=== PATIENT | male | born 1995 | race Caucasian/White ===

== ENCOUNTER 2021-11-27 10:42 | Emergency (ER) | payer BC ==
[2021-11-27 10:57] VITALS: BP 105/64; PULSE 79; TEMP 98.3; BMI 29.0
== END 2021-11-27 12:00 | disposition home or self-care (01) ==
LOC: JERFT 10:42
DX: S40.862A Insect bite (nonvenomous) of left upper arm, initial encounter (principal); S50.862A Insect bite (nonvenomous) of left forearm, initial encounter; W57.XXXA Bitten or stung by nonvenomous insect and other nonvenomous arthropods, initial encounter
CPT/HCPCS: 99281-25

== ENCOUNTER 2023-07-02 20:42 | Emergency (ER) | payer SELFPAY ==
[2023-07-02 20:50] VITALS: BP 126/83; PULSE 87; RESP 18; TEMP 98.1; BMI 30.5
[2023-07-02] MEDS ORDERED: DIPHTH,PERTUSS(ACELL),TET 0.5 ML DISP.SYRIN IM ONE ×3 (21:47→23:38)
== END 2023-07-02 23:38 | disposition home or self-care (01) ==
LOC: JER 20:42
PROC: 0HQFXZZ Repair Right Hand Skin, External Approach (ICD-10-PCS; principal; 2023-07-02)
PROC: 3E0234Z Introduction of Serum, Toxoid and Vaccine into Muscle, Percutaneous Approach (ICD-10-PCS; 2023-07-02)
DX: S61.212A Laceration without foreign body of right middle finger without damage to nail, initial encounter (principal); W25.XXXA Contact with sharp glass, initial encounter
CPT/HCPCS: 73130-TC-RT-FY; 90715; 99283-25

== ENCOUNTER 2023-12-29 08:40 | Emergency (ER) | payer SELFPAY ==
[2023-12-29 08:55] VITALS: RESP 18; BMI 29.8
[2023-12-29] MEDS: SODIUM CHLORIDE 0.9% 1000 ML INFUS.BAG IV ONE (09:56)
[2023-12-29 10:02] LABS: BASO % 0.5 % (0-2.0); EOS % 0.9 % (0-4.5); HEMATOCRIT 34.5 % (35.4-49); HEMOGLOBIN 11.8 GM/dL (11.7-16.9); LYMPH % 17.8 % (8-40); MCHC 34.1 g/dl (32.0-35.9); MEAN CELL VOLUME 108.6 fl (80-96); MEAN PLT VOLUME 8.5 fl (7.5-11.1); MONO % 1.1 % (3.8-10.2); NEUT % 79.7 % (42.8-82.8); PLATELET COUNT 195 10^3/uL (134-434); RBC 3.18 M/mm3 (4.00-5.60); WHITE BLOOD COUNT 7.4 K/mm3 (4.0-10.0)
[2023-12-29 10:25] LABS: ANISOCYTOSIS 1+; MACROCYTOSIS 1+; POTASSIUM 3.7 mmol/L (3.5-5.1)
[2023-12-29 10:29] LABS: ALBUMIN 2.9 g/dl (3.4-5.0); BLOOD UREA NITROGEN 14.9 mg/dL (7-18)
[2023-12-29 10:32] LABS: CREATININE 0.6 mg/dL (0.55-1.3)
[2023-12-29 10:33] LABS: BILIRUBIN,TOTAL 1.3 mg/dL (0.2-1)
[2023-12-29 10:34] LABS: TOT PROT 6.3 g/dl (6.4-8.2)
[2023-12-29 12:59] VITALS: BP 124/77; PULSE 79; TEMP 98.7
[2023-12-29 17:23] LABS: MAGNESIUM 2.1 mg/dL (1.8-2.4)
[2023-12-29] MEDS ORDERED: ONDANSETRON 4 MG/2 ML VIAL IVPUSH PRN (19:04)
[2023-12-29] MEDS ORDERED: SODIUM CHLORIDE 1,000 ML IV SCH (19:15)
[2023-12-29] MEDS ORDERED: THIAMINE 100 MG TABLET PO SCH (20:00)
[2023-12-29] MEDS ORDERED: FOLIC ACID 1 MG TABLET (FP) PO SCH (20:00)
[2023-12-29] MEDS ORDERED: NICOTINE 21 MG/24 HOURS TOPICAL PATCH TD SCH (20:00)
[2023-12-30] MEDS ORDERED: ENOXAPARIN NA (PORCINE) 40 MG/0.4 ML DISP.SYRIN SQ SCH (10:00)
== END 2023-12-29 13:02 | disposition home or self-care (01) ==
LOC: JER 08:40 → MERGE 08:40 → JER 13:02
DX: R55 Syncope and collapse (principal); R42 Dizziness and giddiness; R11.0 Nausea; R53.81 Other malaise
CPT/HCPCS: 36415; 71045-TC-FY; 80053; 80307; 83036; 83735; 84484; 85025; 93005; 93010; 99285-25

== ENCOUNTER 2023-12-29 14:01 | Inpatient (IN) | payer SELFPAY ==
[2023-12-29] MEDS: LACTATED RINGERS SOLUTION 1000 ML INFUS.BAG IV ONE (14:39)
[2023-12-29 14:49] LABS: BASO % 0.4 % (0-2.0); EOS % 0.7 % (0-4.5); HEMATOCRIT 33.2 % (35.4-49); HEMOGLOBIN 11.2 GM/dL (11.7-16.9); LYMPH % 24.9 % (8-40); MCH 36.5 pg (25.7-33.7); MCHC 33.7 g/dl (32.0-35.9); MEAN CELL VOLUME 108.2 fl (80-96); MEAN PLT VOLUME 8.3 fl (7.5-11.1); MONO % 1.4 % (3.8-10.2); NEUT % 72.6 % (42.8-82.8); PLATELET COUNT 188 10^3/uL (134-434); RBC 3.07 M/mm3 (4.00-5.60); RDW 18.3 % (11.9-15.9); WHITE BLOOD COUNT 7.1 K/mm3 (4.0-10.0)
[2023-12-29 15:11] LABS: ANISOCYTOSIS 1+; MACROCYTOSIS 1+; OVALOCYTE 1+
[2023-12-29 15:16] LABS: POTASSIUM 3.2 mmol/L (3.5-5.1)
[2023-12-29 15:18] LABS: ALBUMIN 2.9 g/dl (3.4-5.0); CALCIUM 8.1 mg/dL (8.5-10.1)
[2023-12-29 15:21] LABS: CREATININE 0.6 mg/dL (0.55-1.3)
[2023-12-29 15:23] LABS: BILIRUBIN,TOTAL 0.7 mg/dL (0.2-1); TOT PROT 6.2 g/dl (6.4-8.2)
[2023-12-29 15:29] LABS: ERYTHROCYTE SEDIMENTATION RATE 5 mm/hr (0-10)
[2023-12-29] MEDS ORDERED: POTASSIUM CHLORIDE ORAL LIQUID 20 MEQ/15 ML ONE (16:43)
[2023-12-29] MEDS: POTASSIUM CHLORIDE ORAL LIQUID 20 MEQ/15 ML PO ONE (16:44)
[2023-12-29 17:24] LABS: OPIATES, URI NEGATIVE (NEGATIVE); URINE BARBITURATES NEGATIVE (NEGATIVE)
[2023-12-29 17:25] LABS: METHADONE, UR NEGATIVE (NEGATIVE); URINE AMPHETAMINES NEGATIVE (NEGATIVE); URINE BENZODIAZEPINES NEGATIVE (NEGATIVE)
[2023-12-29 17:30] LABS: COCAINE, UR POSITIVE (NEGATIVE); PHENCYCLIDINE,URINE NEGATIVE (NEGATIVE)
[2023-12-29] MEDS ORDERED: NICOTINE 14 MG/24 HOURS TOPICAL PATCH TD ONE (21:53)
[2023-12-29] MEDS: NICOTINE 14 MG/24 HOURS TOPICAL PATCH TD ONE (21:56)
[2023-12-30] MEDS: hydrOXYzine PAMOATE 25 MG CAPSULE (FP) PO PRN (00:10)
[2023-12-30] MEDS: MELATONIN 5 MG TABLETS PO ONE (00:10)
[2023-12-30] MEDS: LACTATED RINGERS SOLUTION 1,000 ML/1,000 ML INFUS.BAG IV SCH ×2 (08:38→12:32)
[2023-12-30 09:01] VITALS: BMI 31.8
[2023-12-30] MEDS ORDERED: ONDANSETRON 4 MG/2 ML VIAL IVPUSH PRN (09:45)
[2023-12-30] MEDS: FOLIC ACID 1 MG TABLET (FP) PO SCH (09:53)
[2023-12-30] MEDS: THIAMINE 100 MG TABLET PO SCH (09:54)
[2023-12-30] MEDS: NICOTINE 14 MG/24 HOURS TOPICAL PATCH TD SCH (09:54)
[2023-12-30] MEDS: PANTOPRAZOLE 20 MG TABLET PO SCH (09:54)
[2023-12-30 11:13] LABS: BASO % 0.7 % (0-2.0); EOS % 1.9 % (0-4.5); HEMATOCRIT 26.9 % (35.4-49); HEMOGLOBIN 9.2 GM/dL (11.7-16.9); LYMPH % 40.6 % (8-40); MCH 36.8 pg (25.7-33.7); MCHC 34.2 g/dl (32.0-35.9); MEAN CELL VOLUME 107.7 fl (80-96); MEAN PLT VOLUME 8.5 fl (7.5-11.1); MONO % 1.9 % (3.8-10.2); NEUT % 54.9 % (42.8-82.8); PLATELET COUNT 150 10^3/uL (134-434); RDW 18.6 % (11.9-15.9); WHITE BLOOD COUNT 4.1 K/mm3 (4.0-10.0)
[2023-12-30 11:29] LABS: CHLORIDE 110 mmol/L (98-107); SODIUM 141 mmol/L (136-145)
[2023-12-30 11:31] LABS: CALCIUM 7.6 mg/dL (8.5-10.1)
[2023-12-30 11:32] LABS: ALBUMIN 2.4 g/dl (3.4-5.0); BLOOD UREA NITROGEN 9.5 mg/dL (7-18); CO2 27 mmol/L (21-32); GLUCOSE,RANDOM 121 mg/dL (74-106)
[2023-12-30 11:35] LABS: CREATININE 0.6 mg/dL (0.55-1.3); SGOT/AST 26 U/L (15-37); SGPT/ALT 36 U/L (13-61)
[2023-12-30 11:37] LABS: BILIRUBIN,TOTAL 0.5 mg/dL (0.2-1); TOT PROT 4.9 g/dl (6.4-8.2)
[2023-12-30 11:38] LABS: ALK PHOS 70 U/L (45-117)
[2023-12-30 11:52] LABS: ANION GAP 5 mmol/L (4-13); POTASSIUM 2.9 mmol/L (3.5-5.1)
[2023-12-30] MEDS: POTASSIUM CHLORIDE ORAL LIQUID 20 MEQ/15 ML PO ONE (13:10)
[2023-12-30] MEDS: KCL 10 MEQ IVPB 10 MEQ/100 ML INFUS.BAG IVPB SCH (13:10)
[2023-12-30] MEDS: LORazepam 1 MG TABLET PO PRN (13:11)
[2023-12-30 14:29] LABS: MAGNESIUM 1.9 mg/dL (1.8-2.4)
[2023-12-30 19:35] LABS: CALCIUM 7.8 mg/dL (8.5-10.1); POTASSIUM 3.8 mmol/L (3.5-5.1)
[2023-12-30 19:36] LABS: BLOOD UREA NITROGEN 6.3 mg/dL (7-18)
[2023-12-30 19:38] LABS: CREATININE 0.6 mg/dL (0.55-1.3)
[2023-12-30] MEDS: MELATONIN 5 MG TABLETS PO PRN (22:38)
[2023-12-31] MEDS: ACETAMINOPHEN 1000 MG/100 ML BAG IVPB ONE (04:27)
[2023-12-31 08:15] LABS: BASO % 0.8 % (0-2.0); EOS % 2.1 % (0-4.5); HEMATOCRIT 27.5 % (35.4-49); HEMOGLOBIN 9.3 GM/dL (11.7-16.9); MCHC 33.8 g/dl (32.0-35.9); MEAN CELL VOLUME 109.4 fl (80-96); MEAN PLT VOLUME 8.9 fl (7.5-11.1); MONO % 3.6 % (3.8-10.2); NEUT % 48.5 % (42.8-82.8); PLATELET COUNT 168 10^3/uL (134-434); RBC 2.51 M/mm3 (4.00-5.60); RDW 17.8 % (11.9-15.9); WHITE BLOOD COUNT 3.6 K/mm3 (4.0-10.0)
[2023-12-31 08:42] LABS: POTASSIUM 4.1 mmol/L (3.5-5.1)
[2023-12-31 08:50] LABS: CALCIUM 7.2 mg/dL (8.5-10.1); MAGNESIUM 1.8 mg/dL (1.8-2.4)
[2023-12-31 08:51] LABS: CREATININE 0.5 mg/dL (0.55-1.3)
[2023-12-31] MEDS ORDERED: guaiFENesin 600 MG TABLET.ER (FP) PO PRN (09:46)
[2023-12-31] MEDS ORDERED: BENZOCAINE/MENTHOL (CHLORASEPTIC ) LOZENGE MM PRN (09:46)
[2023-12-31] MEDS ORDERED: IBUPROFEN 400 MG TABLET (FP) PO PRN (09:46)
[2023-12-31] MEDS ORDERED: MAG HYDROX/AL HYDROX/SIMETH 30 ML UNIT-DOSE CUP PO PRN (09:46)
[2023-12-31] MEDS ORDERED: METHOCARBAMOL 500 MG TABLET PO PRN (09:46)
[2023-12-31] MEDS ORDERED: NALOXONE HCL 0.4 MG/ML VIAL IM PRN (09:46)
[2023-12-31] MEDS ORDERED: BISMUTH SUBSALICYLATE 524 MG/30 ML PO PRN (09:46)
[2023-12-31] MEDS ORDERED: MAGNESIUM HYDROX 2400MG/30ML ORAL SUSPENSION 30 ML CUP PO PRN (09:46)
[2023-12-31] MEDS ORDERED: DICYCLOMINE HCL 10 MG CAPSULE PO PRN (09:46)
[2023-12-31] MEDS ORDERED: POLYETHYLENE GLYCOL (HEALTHYLAX) 3350 17 GM PACKET PO PRN (09:46)
[2023-12-31] MEDS ORDERED: BENZONATATE 200 MG CAPSULE PO PRN (09:46)
[2023-12-31] MEDS: LORazepam 1 MG TABLET PO SCH (10:58)
[2023-12-31] MEDS ORDERED: LORazepam 2 MG TABLET PO SCH (11:00)
[2023-12-31] MEDS: PRENATAL VITAMINS W/ FOLIC ACID TABLET (FP) PO SCH (12:56)
[2023-12-31] MEDS: MAGNESIUM OXIDE 400 MG TABLET (FP) PO ONE (12:57)
[2023-12-31] MEDS: ACETAMINOPHEN 325 MG TABLET (FP) PO PRN (15:30)
[2023-12-31] MEDS: hydrOXYzine PAMOATE 25 MG CAPSULE (FP) PO PRN (23:53)
[2024-01-01 10:17] LABS: BASO % 0.5 % (0-2.0); EOS % 1.5 % (0-4.5); HEMOGLOBIN 9.9 GM/dL (11.7-16.9); MCH 38.3 pg (25.7-33.7); MCHC 35.4 g/dl (32.0-35.9); MEAN CELL VOLUME 108.1 fl (80-96); MEAN PLT VOLUME 8.2 fl (7.5-11.1); PLATELET COUNT 207 10^3/uL (134-434); RBC 2.59 M/mm3 (4.00-5.60); RDW 17.8 % (11.9-15.9); WHITE BLOOD COUNT 4.7 K/mm3 (4.0-10.0)
[2024-01-01 10:36] LABS: POTASSIUM 3.6 mmol/L (3.5-5.1)
[2024-01-01 10:38] LABS: CALCIUM 7.8 mg/dL (8.5-10.1)
[2024-01-01 10:39] LABS: MAGNESIUM 1.8 mg/dL (1.8-2.4)
[2024-01-01 10:42] LABS: CREATININE 0.7 mg/dL (0.55-1.3)
[2024-01-01 10:43] LABS: BILIRUBIN,TOTAL 0.4 mg/dL (0.2-1); TOT PROT 5.9 g/dl (6.4-8.2)
[2024-01-01 10:47] LABS: ALBUMIN 2.9 g/dl (3.4-5.0)
[2024-01-01] MEDS: LOPERAMIDE HCL 2 MG CAPSULE PO PRN (13:13)
[2024-01-01] MEDS: IBUPROFEN 600 MG TABLET (FP) PO PRN (13:13)
[2024-01-01] MEDS: MELATONIN 5 MG TABLETS PO SCH (21:42)
[2024-01-02] MEDS: LORazepam 1 MG TABLET PO SCH (06:21)
[2024-01-02 08:25] LABS: HEMATOCRIT 28.1 % (35.4-49); HEMOGLOBIN 9.8 GM/dL (11.7-16.9); MCH 37.2 pg (25.7-33.7); MCHC 34.9 g/dl (32.0-35.9); MEAN CELL VOLUME 106.8 fl (80-96); MEAN PLT VOLUME 8.5 fl (7.5-11.1); PLATELET COUNT 240 10^3/uL (134-434); RBC 2.63 M/mm3 (4.00-5.60); RDW 17.6 % (11.9-15.9); WHITE BLOOD COUNT 4.4 K/mm3 (4.0-10.0)
[2024-01-02 08:27] LABS: POTASSIUM 3.6 mmol/L (3.5-5.1)
[2024-01-02 08:41] LABS: BLOOD UREA NITROGEN 4.8 mg/dL (7-18); CALCIUM 8.1 mg/dL (8.5-10.1)
[2024-01-02 08:42] LABS: MAGNESIUM 2.1 mg/dL (1.8-2.4)
[2024-01-02 08:44] LABS: BILIRUBIN,TOTAL 0.4 mg/dL (0.2-1); PHOSPHOROUS 3.9 mg/dL (2.5-4.9); TOT PROT 6.2 g/dl (6.4-8.2)
[2024-01-02 08:45] LABS: CREATININE 0.7 mg/dL (0.55-1.3)
[2024-01-02] MEDS: CYANOCOBALAMIN (VITAMIN B-12) 1000 MCG/1 ML VIAL IM SCH (11:05)
[2024-01-03 02:12] VITALS: RESP 18
[2024-01-03] MEDS: LORazepam 0.5 MG TABLET PO SCH (05:15)
[2024-01-03 07:53] LABS: HEMATOCRIT 28.1 % (35.4-49); HEMOGLOBIN 9.7 GM/dL (11.7-16.9); MCH 36.8 pg (25.7-33.7); MCHC 34.5 g/dl (32.0-35.9); MEAN CELL VOLUME 106.6 fl (80-96); MEAN PLT VOLUME 8.4 fl (7.5-11.1); PLATELET COUNT 267 10^3/uL (134-434); RBC 2.63 M/mm3 (4.00-5.60); RDW 18.2 % (11.9-15.9)
[2024-01-03 08:11] LABS: POTASSIUM 3.7 mmol/L (3.5-5.1)
[2024-01-03 08:15] LABS: CALCIUM 7.9 mg/dL (8.5-10.1)
[2024-01-03 08:16] LABS: BLOOD UREA NITROGEN 5.1 mg/dL (7-18); MAGNESIUM 2.1 mg/dL (1.8-2.4)
[2024-01-03 08:19] LABS: CREATININE 0.7 mg/dL (0.55-1.3)
[2024-01-03 08:20] LABS: BILIRUBIN,TOTAL 0.4 mg/dL (0.2-1); TOT PROT 5.7 g/dl (6.4-8.2)
[2024-01-03 09:53] LABS: ANISOCYTOSIS 1+; MACROCYTOSIS 1+
[2024-01-03 09:55] LABS: PLATELET ESTIMATE ADEQUATE
[2024-01-03 11:48] VITALS: BP 111/80; PULSE 99; TEMP 98
[2024-01-04] MEDS ORDERED: LORazepam 0.5 MG TABLET PO ONE (05:00)
== END 2024-01-03 11:25 | disposition other institution (70) | DRG 774 ==
LOC: JER 14:01 → JERBED 16:50 → J4S 12-30 06:06 → OBSVTOIN 12-30 16:13 → J8W 12-31 20:19
PROVIDERS: ADMIT Internal Medicine; ATTEND Nurse Practitioner Acute Care
DX: F19.132 Other psychoactive substance abuse with withdrawal with perceptual disturbance (principal); F14.10 Cocaine abuse, uncomplicated; G92.8 Other toxic encephalopathy; F10.10 Alcohol abuse, uncomplicated; D64.9 Anemia, unspecified; E86.0 Dehydration; E87.6 Hypokalemia; F12.90 Cannabis use, unspecified, uncomplicated; F17.210 Nicotine dependence, cigarettes, uncomplicated; F19.131 Other psychoactive substance abuse with withdrawal delirium; F41.8 Other specified anxiety disorders; H53.2 Diplopia; R11.2 Nausea with vomiting, unspecified; R19.7 Diarrhea, unspecified; R25.1 Tremor, unspecified; R44.0 Auditory hallucinations
CPT/HCPCS: 0241U-QW; 36415; 70450-TC; 80048; 80053; 80307; 82607; 82746; 83735; 84100; 84443; 85025; 85651; 86140; 93005; 93010; 99285-25; G0378; J0131